=== PATIENT | male | born 1945 | race Caucasian/White ===

== ENCOUNTER 2016-06-29 07:28 | Emergency (ER) | payer MEDICARE, OTHER ==
[~2016-06-29] VITALS: Ht 190.5 cm; Wt 75.0 kg
[2016-06-29 07:31] VITALS: BP 136/77; PULSE 72; RESP 15; O2SAT 99
--- NOTE | 2016-06-29 07:42 | ED.REPORT ---
HPI-General Illness Date of Service Jun 29, 2016 ED Provider: Mono Eddy MD The patient is a 71 year old male with history of PTSD, who presents to the emergency department complaining of worsening anxiety. 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 Over the last few weeks he has noticed his symptoms are worsening. He has experienced anxiety attacks, depression, random episodes of crying, bad dreams, night sweats, and weight loss. He has been stuck inside for most of the winter due to the weather conditions. He normally spends a lot of time outside fishing. He denies hallucinations, homicidal ideation or suicidal ideation. The patient was seen by his PCP 2 days ago and placed on Zoloft. He has noticed some "shakes" and his anxiety has worsened over the last couple of days. He was previously using Wellbutrin to help him stop smoking. He has not been on an antidepressant for many years. He smokes marijuana occasionally. He does not drink alcohol. He denies any physical complaints at this time. He was sick with bronchitis over the winter but these symptoms have improved. He denies fever, chills, cough , shortness of breath, chest pain, abdominal pain, diarrhea, nausea, vomiting, or bloody stools. Nursing Notes Stated Complaint: PTSD Chief Complaint: General Complaint Nursing Notes Reviewed: Yes Allergies: Coded Allergies: No Known Allergies (Unverified , 06/29/16) Scheduled Citalopram (Citalopram) 20 Mg Tablet 20 MG PO DAILY General Time Seen by MD: 07:41 Chief Complaint Other (anxiety) Hx Obtained From: Patient Arrived By: Walk-in Sudden in Onset?: No Onset Occurred: More than a week ago... Symptom Duration: Since onset Severity: Current: No pain currently Severity: Maximum: No pain Recent Healthcare: No recent hospitalization, Recent doctor visit Similar Sx Previous: Yes Past Medical History Past Medical History PTSD Anxiety Family History Noncontributory Smoking History Current Every Day Smoker Social History Alcohol Use: Denies alcohol use Drug Use: THC Other Social History: Good social support, Local resident Ambulatory Status Independent Review of Systems Full Review of Systems Constitutional: Reports: Recent wt loss, Denies: Chills, Fever Respiratory: Denies: Non-productive cough, Shortness of breath Cardiovascular: Denies: Chest pain GI: Denies: Abdominal pain, Diarrhea, Nausea, Vomiting Skin: Reports Diaphoresis (at night) Psychiatric: Reports: Anxiety, Depression, Stress, Denies: Hallucinations, auditory, Hallucinations, visual, Homicidal ideation Complete sys rev & neg: except as marked. Physical Exam Vital Signs Vital Signs Date Time Temp Pulse Resp B/P Pulse Ox O2 Delivery O2 Flow Rate FiO2 06/29/16 07:31 36.2 72 15 136/77 99 Room Air Initial VS: Reviewed Head / Eyes: Atraumatic, Normocephalic, PERRL ENT: Mucous membranes moist, Conjunctiva normal, No scleral icterus Neck: Supple, Non-tender, Full range of motion Respiratory: Breath sounds normal, Clear to auscultation, No respiratory distress Cardiovascular: Regular rate & rhythm, Heart sounds normal, Intact distal pulses Abdomen / GI: Soft, Non-tender, No guarding, No rebound, No distention Lymphatic: No lymphadenopathy Extremities: Vascular intact, Neuro intact, No swelling, No tenderness Skin: Warm, Dry, No cyanosis Neurologic: Alert, Oriented, Nonfocal General/Constitutional: Awake, Alert, Cooperative Psychiatric: Not suicidal, Not homicidal, No hallucinations, Cognitive function NL, Judgment/insight NL, Thought content NL Abnormal Mood/Affect: Positive: Depressed, Flat affect Re-Eval/Medical Decision Med Decision/Clinical Course 71-year-old male history of PTSD, depression presenting feeling very anxious 2 days after starting Zoloft. He reports he woke up feeling very anxious today and jittery. Denies any SI or HI. Discussed with patient and we will stop Zoloft and start citalopram. He will follow up with his primary doctor within 1 week. He is counseled regarding the risks of increased suicidal ideation with SSRI and advised to seek help immediately should he feel suicidal or homicidal. He will follow-up with his primary doctor and consider seeing a therapist and support groups. Return precautions given. Time of Eval: 07:52 Re-Evaluation/Progress Note: Discussed options for medication. Counseled Regarding: Diagnosis, Need for follow-up, When/why to return to ED Discharge & Departure Primary Impression: Anxiety Additional Impression: History of posttraumatic stress disorder (PTSD) Disposition: Home Discharge Condition All VS Reviewed: Yes Condition: Stable Additional Instructions: Thank you for entrusting us with your care today. After our discussion we have decided to stop the Zoloft and start you on sertraline. Call your primary doctor today to schedule a followup appointment in the next week or two. Do not stop taking this medication without speaking with your doctor. I also recommend trying to find a counselor in the area. Make sure to also discuss the recent weight loss with your doctor as well. Seek care for worsening depression or anxiety, suicidal ideations, homicidal ideations, or any other new or concerning symptoms. Scribe Attestation Portions of this note were transcribed by Laureen Parra. I, Dr. Eddy personally performed the history, physical exam and medical decision-making; I reviewed and confirmed the accuracy of the information in the transcribed note. Signed by: Chinedu Orr, 06/29/2016 at 0840. Mono Eddy MD Jun 29, 2016 07:42 Laureen Parra Jun 29, 2016 07:50
[2016-06-29] MEDS ORDERED: CITA20TA11 PO (08:35)
== END 2016-06-29 08:38 | disposition home or self-care (01) ==
LOC: SED 07:28
DX: F41.9 Anxiety disorder, unspecified (principal); R61 Generalized hyperhidrosis; R63.4 Abnormal weight loss; F17.200 Nicotine dependence, unspecified, uncomplicated; Z86.59 Personal history of other mental and behavioral disorders